=== PATIENT | male | born 1985 | race African-American/Black ===

== ENCOUNTER 2017-01-31 07:38 | Emergency (ER) | payer OTHER ==
[~2017-01-31] VITALS: Ht 177.8 cm; Wt 99.8 kg
[2017-01-31] MEDS ORDERED: NOHOMEMEDICATIONS (07:48)
[2017-01-31] MEDS ORDERED: ULTRAM 50MG TAB50 MG PO (09:22)
[2017-01-31 09:45] VITALS: BP 124/75
== END 2017-01-31 10:03 | disposition home or self-care (01) ==
LOC: ER 07:38
DX: S76.011A Strain of muscle, fascia and tendon of right hip, initial encounter (principal); S60.212A Contusion of left wrist, initial encounter; V49.50XA Passenger injured in collision with unspecified motor vehicles in traffic accident, initial encounter; Y93.89 Activity, other specified; Y92.89 Other specified places as the place of occurrence of the external cause; Y99.8 Other external cause status